=== PATIENT | male | born 1945 | race Caucasian/White ===

== ENCOUNTER 2022-01-26 05:34 | Outpatient (CLI) | payer MEDICARE, OTHER ==
[~2022-01-26] VITALS: Ht 125 cm; Wt 188.0 kg
== END 2022-01-27 10:47 | disposition home or self-care (01) ==
LOC: PREOP 05:34
PROVIDERS: ATTEND Specialist
DX: Z01.818 Encounter for other preprocedural examination (principal)

== ENCOUNTER 2022-01-29 08:44 | Day surgery (SDC) | payer MEDICARE, OTHER ==
[~2022-01-29] VITALS: Ht 170.2 cm; Wt 188.0 kg
[2022-01-29] MEDS ORDERED: TROPICAMIDE 1% OPH SOLN (MYDRIACYL) 15 ML BTL OU PRN (09:15)
[2022-01-29] MEDS ORDERED: TETRACAINE 0.5% OPHTH SOLN 4 ML BTL (SINGLE DOSE ONLY) OU PRN (09:15)
[2022-01-29] MEDS ORDERED: PHENYLEPHRINE 10% OPHTH (NEO-SYN) 5 ML BTL OU PRN (09:15)
[2022-01-29 09:27] VITALS: BP 154/90
--- NOTE | 2022-01-29 10:04 | Ophthalmologist Pre-Op Note ---
Pre-Operative Progress Note H&P Reviewed The H&P was reviewed, patient examined and no changes noted. Date H&P Reviewed: Jan 29, 2022 Time H&P Reviewed: 09:45 Pre-Op Dx Secondary Cataract, Bilateral Eyes LESIA CATHERINE MD Jan 29, 2022 10:04
--- NOTE | 2022-01-29 10:05 | Ophthalmology Operative Report ---
YAG Capsulotomy PREOPERATIVE DIAGNOSIS: Secondary Cataract Bilateral POSTOPERATIVE DIAGNOSIS: Secondary Cataract Bilateral PROCEDURE: YAG Capsulotomy, Bilateral SURGEON: Yevgeniy Catherine ANESTHESIA: Topical anesthesia COMPLICATIONS: None ESTIMATED BLOOD LOSS: Minimal DESCRIPTION OF PROCEDURE: After proper informed consent was obtained, the patient's, a [id number] male , received one drop of Tropicamide and one drop of Tetracaine in each eye. The patient was then placed at the YAG laser and using a power of [ 4.5 ] millijoules and bursts 27 ] right eye and [19] left eye were used to fashion a central capsulotomy. The patient tolerated the procedure well without complications. YEVGENIY CATHERINE MD Jan 29, 2022 10:05
== END 2022-01-29 10:01 | disposition home or self-care (01) ==
LOC: SDC 08:44
PROVIDERS: ATTEND Specialist
DX: E11.36 Type 2 diabetes mellitus with diabetic cataract (principal); H26.40 Unspecified secondary cataract